=== PATIENT | male | born 1935 | race African-American/Black ===

== ENCOUNTER 2016-08-17 17:46 | Emergency (ER) | payer MEDICARE ==
[~2016-08-17] VITALS: Ht 193 cm; Wt 113.4 kg
[2016-08-17] MEDS ORDERED: oxyCODONE/APAP 5/325 1 TAB TABLET PO ONE (18:15)
[2016-08-17] MEDS ORDERED: LIDOCAINE 1%/EPI 1:100,000 20 ML VIAL. INJ ONE (18:15)
[2016-08-17] MEDS ORDERED: DIPHTH,PERTUSS(ACELL),TET TOX 0.5 ML DISP.SYRIN. VAX IM ONE (18:45)
--- NOTE | 2016-08-17 18:51 | RAD ---
2 view left shoulder study HISTORY: Fell today. Left shoulder pain. FINDINGS: No acute fracture or dislocation or osteolytic process is seen. No AC joint separation is evident. IMPRESSION: No acute fracture. Electronically signed by: Adam Gonzales MD (08/17/2016 6:48 PM)
[2016-08-17 18:55] VITALS: BP 159/70
--- NOTE | 2016-08-17 19:27 | PHYS DOC ---
Past Medical History Past Medical History: Diabetes-Type II, Hypertension, Prostatitis, Renal Failure, Stroke Additional Past Surgical Histo: DIALYSIS PORTS/ SHUNTS, LIPOSUCTION Alcohol Use: None Drug Use: None Adult General Chief Complaint Chief Complaint: MECHANICAL FALL HPI HPI Patient is a 80 year old male presenting to the emergency department for evaluation of right index finger pain left shoulder pain and a right finger abrasion. They do not know his tetanus status was updated here. They report that he was trying to step up with his walker and could not lift his left leg high enough to make step and fell forward landing on his right hand and left shoulder. There was no head neck chest abdomen back or other extremity trauma or pain. He is in no obvious distress with normal vital signs and daughter reports that he is at his neurologic baseline. Review of Systems Review of Systems Constitutional: Denies fever or chills [] Respiratory: Denies cough or shortness of breath [] Cardiovascular: No additional information not addressed in HPI [] GI: Denies abdominal pain, nausea, vomiting, bloody stools or diarrhea [] Musculoskeletal: Denies back pain. + joint pain [] Neurologic: Denies headache, focal weakness or sensory changes [] Current Medications Current Medications Current Medications Medications (Trade) Dose Ordered Sig/Pablito Start Time Stop Time Status Last Admin Dose Admin Diphtheria/ Tetanus/Acell Pertussis (Boostrix) 0.5 ml ONCE ONCE 08/17/16 18:45 08/17/16 18:46 DC 08/17/16 18:49 0.5 ML Lidocaine/ Epinephrine (Xylocaine 1%-Epi 1:100,000) 20 ml 1X ONCE 08/17/16 18:15 08/17/16 18:16 DC 08/17/16 18:32 20 ML Oxycodone/ Acetaminophen (Percocet 5/325) 2 tab 1X ONCE 08/17/16 18:15 08/17/16 18:16 DC 08/17/16 18:33 2 TAB Allergies Allergies Allergies Coded Allergies Type Severity Reaction Last Updated Verified No Known Drug Allergies 08/17/16 No Physical Exam Physical Exam Constitutional: Well developed, well nourished, no acute distress, non-toxic appearance. [] Eyes: PERRLA, EOMI, conjunctiva normal, no discharge. [] Cardiovascular:Heart rate regular rhythm, no murmur [] Lungs & Thorax: Bilateral breath sounds clear to auscultation [] Abdomen: Bowel sounds normal, soft, no tenderness, no masses, no pulsatile masses. [] Skin: Skin tears to right index finger and palm of hand but no open lacerations Extremities: Right index finger is displaced of the MCP joint. Left shoulder with diminished range of motion and pain at the before meals joint and anterior shoulder. Neurologic: Alert and oriented X 3, normal motor function, normal sensory function, no focal deficits noted. [] Current Patient Data Vital Signs Vital Signs Date Time Temp Pulse Resp B/P (MAP) Pulse Ox O2 Delivery O2 Flow Rate FiO2 08/17/16 18:55 70 10 159/70 (99) 95 Room Air 08/17/16 17:46 98.4 98.4 EKG EKG [] Radiology/Procedures Radiology/Procedures 2 view left shoulder study HISTORY: Fell today. Left shoulder pain. FINDINGS: No acute fracture or dislocation or osteolytic process is seen. No AC joint separation is evident. IMPRESSION: No acute fracture. Electronically signed by: Gege Gonzales MD (08/17/2016 6:48 PM) DICTATED and SIGNED BY: GEGE GONZALES MD DATE: 08/17/16 1843 Impressions: I did a right index finger digital block at the request of the patient. Approximately 4 mL of lidocaine with epinephrine were injected. Right index finger was reduced with traction and manipulation with good results and he had normal neurovascular and tendon exam status post reduction. Patient put in finger splint with normal neurovascular exam post splint application. Course & Med Decision Making Course & Med Decision Making Patient with very benign mechanism and no serious injuries found. Finger was reduced successfully. Left shoulder is put in a sling and they're told to follow with her primary care provider in 2-3 days and come back to the ER sooner with any worsening pain weakness redness swelling or other general concerns. Patient discharged in stable condition and family verbalized understanding of the above plan. Dragon Disclaimer Dragon Disclaimer This electronic medical record was generated, in whole or in part, using a voice recognition dictation system. Departure Departure Impression: Primary Impression: Finger dislocation Additional Impressions: Sprain of shoulder, left Avulsion of skin of finger with tendon involvement Disposition: 01 HOME, SELF-CARE Condition: GOOD Referrals: UNKNOWN PCP NAME (PCP) Patient Instructions: Elbow Dislocation, [id number] Additional Instructions: YOU DISLOCATED YOUR R INDEX FINGER AT THE MCP JOINT. YOU HAVE A L SHOULDER SPRAIN. FOLLOW WITH YOUR PCP LATER THIS WEEK TO ENSURE IMPROVEMENT AND COME BACK TO THE ED SOONER WITH ANY NEW OR WORSENING SYMPTOMS. THANK YOU! Scripts Hydrocodone/Apap 5-325 (NORCO 5-325 TABLET) 1 Each Tablet 1 TAB PO PRN Q6HRS Y for PAIN, #20 TAB 0 Refills Prov: VISHAL DUONG DO 08/17/16 Problem Qualifiers Primary Impression: Finger dislocation Encounter type: initial encounter Qualified Codes: S63.259A - Unspecified dislocation of unspecified finger, initial encounter VISHAL DUONG DO Aug 17, 2016 19:27
[2016-08-17] MEDS ORDERED: HYDR-971 PO (19:38)
--- NOTE | 2016-08-18 08:35 | RAD ---
Portable right hand, 3 views, 08/17/2016: History: Fall, injury There is patchy bony demineralization. The index finger is dislocated at the MCP joint level. The proximal phalanx is displaced posteriorly relative to the distal end of the second metacarpal. No fracture is identified. There are degenerative changes at scattered interphalangeal joints. IMPRESSION: 1. Demineralization. 2. Dislocation of the index finger at the MCP joint level. Note: The findings were called to personnel in the [facility] ER at 8:30 AM on 08/18/2016.
== END 2016-08-17 19:55 | disposition home or self-care (01) ==
LOC: ER 17:46
DX: S63.260A Dislocation of metacarpophalangeal joint of right index finger, initial encounter (principal); S61.300A Unspecified open wound of right index finger with damage to nail, initial encounter; S43.402A Unspecified sprain of left shoulder joint, initial encounter; E11.22 Type 2 diabetes mellitus with diabetic chronic kidney disease; I12.9 Hypertensive chronic kidney disease with stage 1 through stage 4 chronic kidney disease, or unspecified chronic kidney disease; N18.9 Chronic kidney disease, unspecified; Z86.73 Personal history of transient ischemic attack (TIA), and cerebral infarction without residual deficits; Z99.2 Dependence on renal dialysis; W18.39XA Other fall on same level, initial encounter; Y93.89 Activity, other specified; Y92.89 Other specified places as the place of occurrence of the external cause; Y99.8 Other external cause status
CPT/HCPCS: 26700; 73030; 73130; 90471; 90715; 99284; J3490